=== PATIENT | female | born 1950 | race Caucasian/White ===

== ENCOUNTER 2021-06-23 17:31 | Emergency (ER) | payer MEDICARE, SELFPAY ==
--- NOTE | ~2021-06-23 | XR_ITS ---
EXAMINATION: XR FOOT, RIGHT CLINICAL INFORMATION: Foreign body removal. COMPARISON: Right foot radiographs dated 06/23/2021 at 6:34 PM. TECHNIQUE: AP, lateral, and oblique views of the right foot. FINDINGS: There has been interval removal of 3 linear radiopaque foreign bodies in the dorsal soft tissues. Smaller residual linear markings are seen overlying the superficial soft tissues at the level the distal metaphyses of the metatarsals. Subcutaneous air is noted in the dorsal soft tissues in the region of removal is well. Underlying degenerative changes are again noted. XR/XR foot RT min 3V IMPRESSION: Cerebral larger foreign bodies in the dorsal soft tissues with postprocedural subcutaneous air. Smaller, superficial radial opaque foreign bodies are noted. This should be correlated with AP and oblique views.
--- NOTE | ~2021-06-23 | XR_ITS ---
EXAMINATION: XR FOOT, RIGHT CLINICAL INFORMATION: Laceration, trauma, foot pain COMPARISON: None TECHNIQUE: AP, lateral, and oblique views of the right foot. FINDINGS: There is dorsal soft tissue swelling. Projecting between the third and fourth metatarsals on the AP view, there are 3 high density somewhat tubular structures. The most distal structure measures 1.5 cm in greatest dimension. There is a 1.5 cm somewhat transversely oriented structure and a 2.8 cm proximal structure. See the annotated mejia images. These findings are highly suspicious for a radiopaque foreign body. The first metatarsal head appears absent suggesting prior osteotomy. There is likely degenerative sclerosis of the base of the first metatarsal. Small plantar calcaneal osteophyte is present. No acute osseous abnormality seen. XR/XR foot RT min 3V IMPRESSION: There is dorsal soft tissue swelling. There are 3 high density, somewhat tubular radiopaque foreign bodies in the dorsal soft tissues overlying the third and fourth metatarsal. See meija images.
--- NOTE | 2021-06-23 17:37 | ED.SKABFB ---
HPI - Skin/Abscess/Foreign Bdy General Chief complaint: Extremity Problem Stated complaint: Laceration Time Seen by Provider: 06/23/21 17:36 Source: patient Mode of arrival: ambulatory Limitations: no limitations History of Present Illness HPI narrative: This is a 69 old female past medical history significant for AFib on eliquis presenting to the emergency department with a laceration to lower extremity. Happened just prior to arrival. Patient was walking, stepped on a bird ordin[place] cut the bottom of her right foot. She is now reporting bleeding to the site that is hard to control as she is on blood thinners, some pain. She is not up-to-date on a tetanus shot. She denies paresthesias, numbness, severe pain. She is able to bear weight on the right lower extremity. MD complaint: laceration Onset (ago): minute(s) (30) Tetanus up to date: no Location: R foot Severity: mild Quality: constant Pain Consistency: constant Relieving factors: none Exacerbating factors: none Context: none Associated symptoms: denies other symptoms Treatments prior to arrival: none Related Data Previous Rx's Medication Instructions Recorded cephalexin 500 mg tablet 500 mg PO Q6H 7 Days #28 tab 06/23/21 doxycycline hyclate 100 mg capsule 100 mg PO BID 10 Days #20 cap 06/23/21 Allergies Allergy/AdvReac Type Severity Reaction Status Date / Time Iodinated Contrast Media Allergy Unknown HIVES,DIFFICULTY Unverified 01/11/20 16:23 [IVP DYE] BREATHING iodine [IODINE] Allergy Unknown HIVES,DIFFICULTY Unverified 01/11/20 16:23 BREATHING warfarin [From COUMADIN] Allergy Unknown ITCHING Unverified 01/11/20 16:23 Review of Systems Review of Systems: Constitutional : No Fever, No Chills, Cardiovascular : No Chest Pain, No SOB Respiratory : No Dyspnea Gastrointestinal : No abdominal pain Musculoskeletal : No Joint Swelling Skin : No rash, positive skin laceration Neuro : No Weakness, No Numbness Psych : No SI/HI Yes all other systems are reviewed and are negative PMFSH Past Medical History Attestation statement: The following information was validated with the patient. Source: old records reviewed and nursing notes reviewed Social History Social History Advance Directives: No Advance Directives Information Provided: No Physical Exam Vital Signs: Vital Signs: Last Vital Signs Temp 98.0 F 06/23/21 17:44 Pulse 80 06/23/21 21:35 Resp 16 06/23/21 21:35 BP 156/81 H 06/23/21 21:35 Pulse Ox 95 06/23/21 21:35 BMI result Body Mass Index 38.7 VSS Appearance: Alert.? Oriented X3.? No acute distress.? Head: Normocephalic, atraumatic, no step-offs or deformities Eyes: Pupils equal, round and reactive to light.? ENT: Pharynx normal.? Neck: Normal inspection.? Neck supple.? CVS: Normal heart rate and rhythm.? Pulses normal.? Respiratory: No respiratory distress.? Breath sounds normal.? Abdomen: Soft and nontender.? Skin: Skin warm and dry.? Normal skin color.? Normal skin turgor.? Extremities: No lower extremity edema.? No calf ttp. 5/5 strength to bilateral upper and lower extremities + question right dorsalis pedis arterial bleed to the right lower extremities. Laceration underneath the 4th toe linear in nature 2 cm. Bleeding is uncontrolled, squirting, likely arterial bleed. Upon percussion and exploring of the wound it appears as though there is foreign body in the area, likely glass I was able to remove 2 pieces of large glass. However it appears as though glass went through the bottom of the foot to the top of the foot. A hematoma forming to the right lower extremity, pressure dressing applied. Attending at the bedside. Back: No midline tenderness, no C-spine tenderness, full range of motion, no CVA tenderness bilaterally Neuro: Oriented X 3.? No motor deficit.? No sensory deficit. CN 2-12 intact Course Reevaluation(s) Reevaluation #1: This case was discussed with vascular who came to evaluate patient at the bedside since bleeding was very hard to control. Right before vascular arrived was able to put in two suture to stop the bleeding. Arterial bleeding stopped. Bleeding under control. removed foreign body via guided ultrasound. Five foreign bodies were removed from the patient's right foot. Without complications. Patient will be given IV Zosyn at this time. She will be discharged home on doxycycline, and Keflex. Advised her to return with new or worsening symptoms. She will follow-up with her PCP. Time: 20:56 Reevaluation #2: Patient is being given Zosyn. Bleeding has subsided. Will continue to monitor until discharge. Time: 21:06 Reevaluation #3: spoke to and told him that bleeding is controlled. They both feel comfortable with patient being discharged home. She is hemodynamically stable at this time. Time: 22:12 Additional Reevaluation(s): I gave patient strict return precautions give her follow-up with the [facility], vascular, PCP. Advised her to return with any new or worsening symptoms. Vascular advised that she stops her Eliquis for 3 days. 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 MDM - Skin/Abscess/Foreign Bdy MDM Narrative Medical decision making narrative: 1739 70 yo f on blood thinners presents with right foot laceration with uncontrolled bleeding. Patient is on coumadin. Immediately on patient's arrival pressure dressing was applied to the area, and pressure was applied. Upon physical examination there is a laceration to the 4th toe linear about 2 cm, with heavy bleeding. There is a puncture wound to the ventral aspect of foot, which appears to be an arterial bleed, squirting blood, with uncontrolled bleeding. There is a forming hematoma to the right lower extremity. Bleeding very hard to stop. Upon percussion it appears as though there is a foreign body to both of these lacerations/puncture wounds. Able to remove some glass from the laceration to the 4th right toe. Plan to suturing control the bleed. I called my supervising physician over to the bedside as bleeding is very hard to control. Vascular will be called as this is likely a laceration to the dorsalis pedis artery. Medical Records Attestation: I reviewed the patient's medical records. Lab Data Attestation: I reviewed the patient's lab results. Result diagrams: 06/23/21 19:34 06/23/21 19:34 Labs: Lab Results 06/23/21 06/23/21 06/23/21 Range/Units 19:34 19:34 19:34 WBC 13.6 H (4.8-10.8) X10*3/uL RBC 4.58 (4.20-5.50) X10*6/uL Hgb 13.4 (12.0-16.0) g/dl Hct 40.3 (37.0-47.0) % MCV 88.0 (80.0-98.0) fL MCH 29.3 (27.0-33.0) pg MCHC 33.3 (31.0-35.0) g/dl RDW 13.1 (11.0-16.0) % Plt Count 269 (160-400) X10*3/uL MPV 10.5 (9.4-12.3) fL Immature Gran % (Auto) 0.2 (0.0-0.4) % Neut % (Auto) 63.1 (45-73) % Lymph % (Auto) 28.7 (20-40) % [place] % (Auto) 5.8 (2-11) % Eos % (Auto) 1.8 (0-4) % Baso % (Auto) 0.4 (0-2) % Lymph # (Auto) 3.9 (1.2-4.9) X10*3/uL [place] # (Auto) 0.8 (0.1-1.2) X10*3/uL Eos # (Auto) 0.3 (0.0-0.4) X10*3/uL Baso # (Auto) 0.1 (0.0-0.2) X10*3/uL Abs Immat Gran (auto) 0.03 (0.00-0.03) X10*3/uL Absolute Neuts (auto) 8.6 H (2.0-8.3) x10*3/uL Absolute Nucleated RBC 0.000 (0.0-0.012) X10*3/uL Nucleated RBC % (auto) 0.0 (0.0-0.2) /100WBC PT 13.7 H (9.9-13.0) SEC INR 1.2 H (0.9-1.1) Sodium 137 (135-145) mmol/L Potassium 4.0 (3.3-5.1) mmol/L Chloride 100 (96-108) mmol/L Carbon Dioxide 27 (22-29) mmol/L Anion Gap 14 (12-20) BUN 22 H (9-16) mg/dL Creatinine 0.92 (0.5-1.4) mg/dL Estim Creat Clear Calc 70.0 Estimated GFR > 60 Random Glucose 115 (60-115) mg/dL Calcium 9.8 (8.4-10.2) mg/dL Total Bilirubin 0.4 (0.0-1.0) mg/dL AST 16 (5-31) U/L ALT 17 (0-31) U/L Alkaline Phosphatase 56 (39-117) U/L Total Protein 7.0 (6.5-8.0) g/dL Albumin 4.3 (3.5-5.0) g/dL Procedures Laceration Laceration 1: Site: lower extremity Side (If applicable): right Size (cm): 2 Description: linear Depth: simple, single layer Local Anesthetic: lidocaine 2% Amount of anesthesia used (mL): 5 Pre-repair: wound explored, irrigated extensively and deep structures intact Skin layer closed with: nylon Size (cm): 4-0 Number of sutures: 2 Critical Care Time Critical Care Time Critical Care Time: Yes Total Critical Care Time: 145 Attestation: I attest to this time spent taking care of the patient obtaining history, physical, reviewing labs, imaging, speaking to Ortho, speaking to vascular, speaking to my attending, removing foreign body, suturing. Discharge Plan Discharge Clinical Impression: Laceration of foot Patient Disposition: Home, Self-Care Instructions: Laceration (ED) Additional Instructions: Take your medications as prescribed. If you were prescribed antibiotics today, it is important that you take your medication to their entirety, do not skip any doses, do not finish them early. Follow-up with your primary care provider this week. Follow-up with the wound clinic for a wound check. Return to the emergency department with new or worsening symptoms. Such as fevers, chills, nausea, vomiting, chest pain, shortness of breath, uncontrolled bleeding, redness, swelling, discharge at the site. Return in 7-10 days for suture removal. In case of emergency call [address] Li advised to stop your eliquis for 3 days. [facility] ?[phone] Prescriptions: New doxycycline hyclate 100 mg capsule 100 mg PO BID 10 Days Qty: 20 0RF cephalexin 500 mg tablet 500 mg PO Q6H 7 Days Qty: 28 0RF Referrals: Danie Barajas MD [Primary Care Provider] - 2 days Jarad Li MD [Physician] - 5 days Stand Alone Forms: Work/School Release
[2021-06-23 17:44] VITALS: BP 192/81; PULSE 80; RESP 16; TEMP 36.7; O2SAT 95; BMI 38.7
[2021-06-23] MEDS: Lidocaine HCl 2%/Epi 1:100,000 20 ML VIAL INFILTRATI (18:38)
[2021-06-23] MEDS: Lidocaine HCl 2 % MPF 5 ML VIAL SUBCUT ×2 (18:38)
[2021-06-23] MEDS: Silver Sulfadiazine 1 % Cream 20 GM TUBE 1 APPL TOPICAL (18:38)
[2021-06-23] MEDS: Diphth,Pertus(ACell),Tet Adult 0.5 ML SYRINGE IM (18:58)
[2021-06-23] MEDS: LORazepam 0.5 MG TABLET PO (19:21)
[2021-06-23 19:42] LABS: MANUAL DIFF FLAG NO
[2021-06-23 19:43] LABS: Basophils Absolute Auto 0.1 X10*3/uL (0.0-0.2); Basophils Percent Auto 0.4 % (0-2); Eosinophils Absolute Auto 0.3 X10*3/uL (0.0-0.4); Eosinophils Percent Auto 1.8 % (0-4); Hematocrit 40.3 % (37.0-47.0); Hemoglobin 13.4 g/dl (12.0-16.0); Imm Gran Abs Auto 0.03 X10*3/uL (0.00-0.03); Imm Gran Pct Auto 0.2 % (0.0-0.4); Lymphocytes Absolute Auto 3.9 X10*3/uL (1.2-4.9); Lymphocytes Percent Auto 28.7 % (20-40); Mean Corpuscular HGB Conc 33.3 g/dl (31.0-35.0); Mean Corpuscular Hemoglobin 29.3 pg (27.0-33.0); Mean Platelet Volume 10.5 fL (9.4-12.3); Monocytes Absolute Auto 0.8 X10*3/uL (0.1-1.2); Monocytes Percent Auto 5.8 % (2-11); Neutrophils Absolute Auto 8.6 x10*3/uL (2.0-8.3); Neutrophils Percent Auto 63.1 % (45-73); Platelet Count 269 X10*3/uL (160-400); Red Blood Count 4.58 X10*6/uL (4.20-5.50); Red Cell Distribution Width 13.1 % (11.0-16.0); White Blood Count 13.6 X10*3/uL (4.8-10.8)
[2021-06-23 19:50] LABS: INTERNATIONAL NORM RATIO 1.2 (0.9-1.1); Prothrombin Time 13.7 SEC (9.9-13.0)
[2021-06-23 19:57] LABS: Alanine Aminotransferase 17 U/L (0-31); Albumin Level 4.3 g/dL (3.5-5.0); Alkaline Phosphatase 56 U/L (39-117); Anion Gap 14 (12-20); Aspartate Amino Transferase 16 U/L (5-31); Bilirubin Total 0.4 mg/dL (0.0-1.0); Blood Urea Nitrogen 22 mg/dL (9-16); Calcium 9.8 mg/dL (8.4-10.2); Carbon Dioxide 27 mmol/L (22-29); Chloride 100 mmol/L (96-108); Estimated Glomerular Filt Rate > 60; Glucose Random 115 mg/dL (60-115); Sodium 137 mmol/L (135-145)
[2021-06-23] MEDS: Piperacillin Sodium/Tazobactam 3.375 GM in 0.9 % Sodium Chloride 50 ML IV (21:23)
[2021-06-23 21:35] VITALS: BP 156/81; PULSE 80; RESP 16; O2SAT 95
--- NOTE | 2021-06-24 08:12 | P.CONGS_ITS ---
History of Present Illness Consult details Consult date: 06/23/21 Narrative: 70-year-old diabetic female who has been on Eliquis secondary to AFib presented to the emergency room secondary to a puncture wound to the right foot. She reports that she had stepped on some sort a glass or 2 minutes. It had punctured and lacerated the distal part of her right forefoot. She had uncontrolled bleeding. She presented to the emergency room. Several attempts were made by the emergency room PA to control bleeding with no avail. I was called in to assist in this. At the time of my arrival emergency room physician was able to control bleeding. She now presents to us for vascular evaluation. Review of Systems Review of Systems: Yes all other systems are reviewed and are negative Constitutional: Constitutional: Reports no additional constitutional comp laints ENT: Reports Normal hearing present Cardiovascular: Cardiovascular: Denies chest pain, Denies chest pain at rest, Denies chest pain with activity and Denies pedal edema Respiratory: Respiratory: Denies cough Gastrointestinal: Gastrointestinal: Denies abdominal pain Musculoskeletal: Musculoskeletal: Denies abnormal gait, Denies muscle cramps and Denies radiating pain into limb Integumentary/Breasts: Skin/Breast: Denies skin ulcer and Denies wounds Neurologic: Reports Normal hearing present and Denies abnormal gait Psychiatric: Psychiatric: Reports no additional psychiatric complaints PMFSH Social History Social History Advance Directives: No Advance Directives Information Provided: No Meds Allergies Allergy/AdvReac Type Severity Reaction Status Date / Time Iodinated Contrast Media Allergy Unknown HIVES,DIFFICULTY Unverified 01/11/20 16:23 [IVP DYE] BREATHING iodine [IODINE] Allergy Unknown HIVES,DIFFICULTY Unverified 01/11/20 16:23 BREATHING warfarin [From COUMADIN] Allergy Unknown ITCHING Unverified 01/11/20 16:23 Physical Exam Vital Signs: Vital Signs: Last Vital Signs Temp 98.0 F 06/23/21 17:44 Pulse 80 06/23/21 21:35 Resp 16 06/23/21 21:35 BP 156/81 H 06/23/21 21:35 Pulse Ox 95 06/23/21 21:35 BMI result Body Mass Index 38.7 Const: General: cooperative, healthy appearing and comfortable Orientat ion/consciousness: oriented to person, oriented to place and oriented to time HENMT: Head: Yes normal to inspection Neck: Neck: Yes normal visual inspection Carotids: no bruits Chest: Chest palpation & inspection: normal inspection of the chest Resp: Effort & Inspection: normal respiratory effort and able to speak in complete sentences Auscultation: clear to auscultation bilaterally, no crackles, no rales, no rhonchi and no wheezes Cardio: Rate: regular rate Rhythm: regular rhythm Heart sounds: S1 normal heart sound present and S2 normal heart sound present Bruits: no carotid bruits Peripheral pulses: Peripheral pulses 2+ throughout GI: Inspection: Yes normal to inspection Skin: Other: Hematoma right forefoot Wounds: wounds noted (Right foot) Hair: normal Neuro: General: oriented to person, oriented to place and oriented to time Cranial nerves: Yes CN's II-XII intact bilaterally and Yes Normal hearing present Cognition (Neuro): normal cognition Motor exam (neuro): 5/5 motor strength present throughout Extrem: Other: venous exam: No significant superficial varicosities or spider telangiectasias, minimal edema General: No clubbing, No cyanosis and No edema Ankle/foot/toe images: 1. Psych: Appearance: grossly normal Mental Status: mental status grossly normal Speech and movement: Normal speech and movement present Results Labs Result diagrams: 06/23/21 19:34 06/23/21 19:34 Labs: Abnormal lab results 06/23/21 06/23/21 06/23/21 Range/Units 19:34 19:34 19:34 WBC 13.6 H (4.8-10.8) X10*3/uL Absolute Neuts (auto) 8.6 H (2.0-8.3) x10*3/uL PT 13.7 H (9.9-13.0) SEC INR 1.2 H (0.9-1.1) BUN 22 H (9-16) mg/dL Short CBC 06/23/21 Range/Units 19:34 WBC 13.6 H (4.8-10.8) X10*3/uL Hgb 13.4 (12.0-16.0) g/dl Hct 40.3 (37.0-47.0) % Plt Count 269 (160-400) X10*3/uL BMP 06/23/21 19:34 Sodium 137 Potassium 4.0 Chloride 100 Carbon Dioxide 27 BUN 22 H Creatinine 0.92 Calcium 9.8 Liver Function 06/23/21 Range/Units 19:34 Total Bilirubin 0.4 (0.0-1.0) mg/dL AST 16 (5-31) U/L ALT 17 (0-31) U/L Alkaline Phosphatase 56 (39-117) U/L Albumin 4.3 (3.5-5.0) g/dL All other labs normal. Imaging Additional studies: Foot x-ray reviewed in appears to have 3 individual shards of glass Assessment and Plan (1) Puncture wound of right foot: Status: Acute Plan In short patient has a right foot puncture. It appears that the bleeding has been controlled. Case was discussed with the emergency room team. They will retrieve the foreign bodies. Stable from my perspective for discharge. She can follow up with us on an as-needed basis. Thank you for allowing us to assist in her care. Please note a total of 60 minutes was required in this patient's care inclusive discussion with the emergency room team, review of images, control bleeding, and follow-up care. Procedures Date of Service Date of Service: 06/23/21
== END 2021-06-23 22:26 | disposition home or self-care (01) ==
PROVIDERS: Physician Assistant; Emergency Provider Emergency Medicine; PCP Internal Medicine
DX: S91.321A Laceration with foreign body, right foot, initial encounter (principal); S91.341A Puncture wound with foreign body, right foot, initial encounter; W22.8XXA Striking against or struck by other objects, initial encounter; R58 Hemorrhage, not elsewhere classified; M79.671 Pain in right foot; Y93.01 Activity, walking, marching and hiking; Y92.019 Unspecified place in single-family (private) house as the place of occurrence of the external cause; Y99.9 Unspecified external cause status; I48.91 Unspecified atrial fibrillation; Z79.01 Long term (current) use of anticoagulants
CPT/HCPCS: 12041; 36415; 73630; 80053; 85025; 85610; 90471; 90715; 96365; 99284; 99291; 99292; J2543

== ENCOUNTER 2021-06-24 13:45 | Outpatient (RCR) | payer MEDICARE, SELFPAY | END 2021-07-08 15:41 | disposition home or self-care (01) | LOC: HO.WCC 13:45 | PROVIDERS: PCP Internal Medicine; Visit Provider Physician Assistant | DX: S91.114A Laceration without foreign body of right lesser toe(s) without damage to nail, initial encounter (principal); S91.311A Laceration without foreign body, right foot, initial encounter; L08.9 Local infection of the skin and subcutaneous tissue, unspecified; I48.20 Chronic atrial fibrillation, unspecified; Z79.01 Long term (current) use of anticoagulants; Z79.2 Long term (current) use of antibiotics | CPT/HCPCS: 99214 ==